=== PATIENT | male | born 1960 | race Caucasian/White ===

== ENCOUNTER 2024-09-20 19:04 | Observation (INO) | payer MEDICARE, SELFPAY ==
[2024-09-20] VITALS (28 sets, daily range): BP systolic 96–157; BP diastolic 68–106; PULSE 76–103; TEMP 36.5–37.1; O2SAT 96–99; BMI 29.0; BMI 28.6
--- NOTE | 2024-09-20 19:08 | ECG_ITS ---
[facility] Test Date: 2024-09-20 Pat Name: ROSALEE PATRICK Department: Room: - Gender: Male Claims Representative: : 1960 Requested By: [id number] Order Number: [id number] Reading MD: CORNELIO BAE M.D. Measurements Intervals [place] Rate: 98 P: 80 OK: 190 QRS: 70 QRSD: 74 T: 70 QT: 326 QTc: 381 Interpretive Statements 1100 Sinus rhythm Normal ECG No previous ECG available for comparison Electronically Signed On 09-20-2024 20:21:49 EDT by CORNELIO BAE M.D.
--- NOTE | 2024-09-20 19:10 | ED.NEUROSD1 ---
HPI - Neuro Symptoms/Deficit General Chief Complaint: Neuro Symptoms/Deficit Stated Complaint: Possible Stroke Time Seen by Provider: 09/20/24 19:06 History of Present Illness HPI Narrative: This 58-year-old male who quit smoking 2 weeks ago presents for evaluation of dizziness, lightheadedness and feeling that her motor skills were not working specifically on the left side of his body. The symptoms started approximately 20 minutes prior to arrival after having dinner with his family. The patient states that his oxygen has been running low. He denies any headache. He does not have any slurred speech. He does not have any confusion. He has no weakness numbness or tingling after coming back from CAT scan. He states his left hand felt numb earlier but that seems to be resolving and his dizziness seems better. He denies any chest pain but has had ongoing shortness of breath since a recent bout of influenza. The patient states that he thinks that his lungs just cannot recover after having influenza. He denies any alcohol intake. He states he has not had a drink in 30 years. He has no abdominal pain or back pain. He denies any nausea vomiting diarrhea. He has not had any diaphoresis or syncope. Additional history was obtained from the patient's daughter. She states that they were having dinner at a local [employer] restaurant and she looked over at him and he was leaning to the left. She has some if he was okay and noticed that he was drooling and at that time he had slurred speech. She had some trouble getting him out of the restaurant but was able to get him into the car but he was fumbling with his hands and could not buckle his seatbelt. Apparently he had an episode of dizziness a week or so ago as well. The patient's daughter is glad to see that when she came back to see him in room 5 that his symptoms appear to have resolved. He was reevaluated and his neuroexam remains normal. He is jovial and making jokes with his daughter. He is awake and alert. He is using his upper and lower extremities normally at this time. Related Data Home Medications ?Medication ?Instructions ?Recorded ?Confirmed No Known Home Medications 09/20/24 09/20/24 Allergies Allergy/AdvReac Type Severity Reaction Status Date / Time No Known Drug Allergies Allergy Verified 09/20/24 19:31 Review of Systems ROS Status of ROS 10 or more systems reviewed and unremarkable except as noted in history and below [facility] Social History (Updated 09/20/24 @ 22:35 by Saranya Robbins RN) Smoking status: Former smoker Little interest or pleasure in doing things: not at all Feeling down, depressed, or hopeless: not at all Exam Narrative Exam Narrative: Vital signs and Nursing Notes reviewed: Patient is afebrile with a normal pulse, normal respiratory rate, blood pressure is mildly elevated at 148/95, he is not hypoxic with pulse ox of 97% on room air General: Awake, alert, oriented, slightly anxious, no respiratory distress HEENT: Normocephalic atraumatic, mucous membranes are moist and pink, eyes are clear, normal conjunctiva, vision is grossly intact, posterior pharynx is normal in appearance. Neck: Supple, no meningeal signs, no anterior or posterior cervical lymphadenopathy Chest: Lungs are clear to auscultation with good air entry, there is no wheezing rhonchi or rales appreciated no accessory muscle use, patient is speaking in complete sentences-no chest wall tenderness to palpation CVS: Regular rate and rhythm S1-S2, no murmurs rubs or gallops, pulses are brisk and equal bilaterally ABD: Soft, nondistended, nontender, no rebound guarding or rigidity, bowel sounds are normal, no pulsatile masses appreciated Extremities: Moving all extremities, no lower extremity tenderness or swelling noted, negative Homans' sign, pulses are brisk and equal bilaterally Skin: Normal in appearance without rash,pallor, petechiae or purpura Neuro: No focal deficits; speech is clear but he has some degree of difficulty finding the words he wants to use, mold filler and drainer strength is intact, there is no facial droop. Patient easily pulls himself to a seated position with no truncal ataxia or weakness, cognition is intact. Negative pronator drift, upper and lower extremity strength and sensation is intact, patient is able to approximate thumb and all fingers. NIH stroke scale is 1-2 Constitutional Vital Signs, click to edit/add: Last Vital Signs Temp 98.7 F 09/20/24 19:19 Pulse 88 09/20/24 22:30 Resp 24 H 09/20/24 22:30 BP 124/77 09/20/24 21:32 Pulse Ox 99 09/20/24 22:00 O2 Del Method Room Air 09/20/24 19:19 Course Vital Signs Vital signs: Vital Signs Pulse Rate 103 H 09/20/24 19:18 Respiratory Rate 20 09/20/24 19:18 Temperature 98.7 F 09/20/24 19:19 Pulse Rate 88 09/20/24 22:30 Respiratory Rate 24 H 09/20/24 22:30 Blood Pressure 124/77 09/20/24 21:32 Pulse Oximetry 99 09/20/24 22:00 Oxygen Delivery Method Room Air 09/20/24 19:19 MDM - Neuro Symptoms/Deficit MDM Narrative Medical decision making narrative: This 64-year-old male who is a former smoker presents for evaluation of acute onset of left-sided weakness with slurred speech and some drooling. The patient's daughter was with him at a local restaurant when the symptoms started. She brought him immediately to the emergency department. Upon arrival his symptoms had started to resolve. He was taken for an immediate CT scan of the brain for stroke. CT scan was negative for acute findings. The patient complains of some dysesthesia in the left arm and feeling that it is cold. He also is having some degree of dysarthria and motor difficulty with the left hand and arm. The patient's daughter states that he was unable to buckle his seatbelt in her car. The symptoms started with him leaning to the left with some drooling and dysarthria. Upon arrival to the hospital he was assisted to a wheelchair by security because he was unable to get out of the car by himself. He was taken immediately to CT scan after coming back to the emergency department his symptoms have started to resolve. He denies any chest pain. He has had some shortness of breath since her recent bout of influenza. While in the emergency department his symptoms were minimal with some degree of difficulty finding the appropriate words and mild ataxia. After CT angio of the head and neck he requested to go to the bathroom and required some degree of assistance due to some mild ataxia. His neuroexam is otherwise been normal with no facial droop, slurred speech in the emergency department or focal neurologic weakness numbness or tingling besides the subjective feeling that his left arm is cold. His MA stroke scale is a 1-2 for mild dysarthria and mild ataxia. He was able to read the stroke scale card without any difficulty. EKG done upon arrival is a sinus rhythm at 98 bpm with a normal axis. An IV was placed and routine labs are ordered. He has a normal white count and hemoglobin. Electrolytes are normal. Troponin is normal. He is negative for COVID-19 and influenza. Delta troponin is normal. Lactic acid is normal at 1.8. CT angio of the brain and neck was reviewed by radiology and is negative for acute findings. 324 mg of aspirin and 300 mg of Plavix were given to the patient and neurology at [facility] was consulted. The patient's nurse noted at 1 point he was holding onto a glass of ice and dropped it not remembering that he had in his hands. Case was discussed with the Telestroke Neurologist, Dr Little. He suggest 324 mg baby aspirin, 300 mg of Plavix which had already been given to him and admission for permissive hypertension, an MRI and echocardiogram. This was discussed with the patient and his daughter. He is agreeable to this plan. The case was discussed with the hospitalist and he is excepted for admission, MedSurg with telemetry monitoring. Lab Data Attestation: I reviewed the patient's lab results. Labs: Lab Results 09/20/24 09/20/24 09/20/24 Range/Units 19:12 19:30 19:34 WBC 8.4 (4.0-11.0) 10^3/uL RBC 4.97 (4.70-6.10) 10^6/uL Hgb 15.5 (14.0-18.0) g/dL Hct 44.7 (42.0-54.0) % MCV 89.9 (80.0-94.0) fL MCH 31.2 (25.9-34.0) pg MCHC 34.7 (29.9-35.2) g/dL RDW 13.1 (11.0-15.0) % Plt Count 293 (150-450) 10^3/uL MPV 9.7 (9.5-13.5) fL Neut % (Auto) 61.1 (43.0-75.0) % Lymph % (Auto) 23.3 (20.5-60.0) % Beauregard % (Auto) 13.4 H (1.7-12.0) % Eos % (Auto) 1.3 (0.9-7.0) % Baso % (Auto) 0.2 (0.2-2.0) % Neut # (Auto) 5.2 (1.4-6.5) 10^3/uL Lymph # (Auto) 2.0 (1.2-3.8) 10^3/uL Bea[place]gard # (Auto) 1.1 H (0.3-0.8) 10^3/uL Eos # (Auto) 0.1 (0.0-0.7) 10^3/uL Baso # (Auto) 0.0 (0.0-0.1) 10^3/uL Abs Immat Gran (auto) 0.06 H (0.00-0.03) 10^3/uL Imm/Tot Granulo (auto) 0.7 H (0.0-0.5) % PT 10.1 (9.0-11.6) sec INR 0.95 Sodium 137 (136-145) mmol/L Potassium 4.0 (3.5-5.1) mmol/L Chloride 101 (98-107) mmol/L Carbon Dioxide 25.4 (21.0-32.0) mmol/L Anion Gap 14.6 BUN 20.0 H (7.0-18.0) mg/dL Creatinine 1.11 (0.70-1.30) mg/dL Est GFR ( Amer) >60 (>=60 mL/min/1.73m^2) Est GFR (Non-Af Amer) >60 (>=60 mL/min/1.73m^2) BUN/Creatinine Ratio 18.0 Glucose 134 H (74-106) mg/dL Lactate 1.8 (0.4-2.0) mmol/L Calcium 8.3 L (8.5-10.1) mg/dL Total Bilirubin 0.6 (0.2-1.0) mg/dL AST 12 L (15-37) U/L ALT 37 (16-63) U/L Alkaline Phosphatase 94 (46-116) U/L Troponin I High Sens 7.5 (4.0-76.1) pg/mL Total Protein 6.6 (6.4-8.2) g/dL Albumin 3.1 L (3.4-5.0) g/dL Globulin 3.5 g/dL Albumin/Globulin Ratio 0.9 Influenza Type A Ag Negative Influenza Type B Ag Negative SARS-CoV-2 Ag (CV2AG) Negative (NEGATIVE) POC Glucose 160 H (74-106) mg/dL 09/20/24 Range/Units 21:26 WBC (4.0-11.0) 10^3/uL RBC (4.70-6.10) 10^6/uL Hgb (14.0-18.0) g/dL Hct (42.0-54.0) % MCV (80.0-94.0) fL MCH (25.9-34.0) pg MCHC (29.9-35.2) g/dL RDW (11.0-15.0) % Plt Count (150-450) 10^3/uL MPV (9.5-13.5) fL Neut % (Auto) (43.0-75.0) % Lymph % (Auto) (20.5-60.0) % Beauregard % (Auto) (1.7-12.0) % Eos % (Auto) (0.9-7.0) % Baso % (Auto) (0.2-2.0) % Neut # (Auto) (1.4-6.5) 10^3/uL Lymph # (Auto) (1.2-3.8) 10^3/uL Beauregard # (Auto) (0.3-0.8) 10^3/uL Eos # (Auto) (0.0-0.7) 10^3/uL Baso # (Auto) (0.0-0.1) 10^3/uL Abs Immat Gran (auto) (0.00-0.03) 10^3/uL Imm/Tot Granulo (auto) (0.0-0.5) % PT (9.0-11.6) sec INR Sodium (136-145) mmol/L Potassium (3.5-5.1) mmol/L Chloride (98-107) mmol/L Carbon Dioxide (21.0-32.0) mmol/L Anion Gap BUN (7.0-18.0) mg/dL Creatinine (0.70-1.30) mg/dL Est GFR ( Amer) (>=60 mL/min/1.73m^2) Est GFR (Non-Af Amer) (>=60 mL/min/1.73m^2) BUN/Creatinine Ratio Glucose (74-106) mg/dL Lactate (0.4-2.0) mmol/L Calcium (8.5-10.1) mg/dL Total Bilirubin (0.2-1.0) mg/dL AST (15-37) U/L ALT (16-63) U/L Alkaline Phosphatase (46-116) U/L Troponin I High Sens 8.0 (4.0-76.1) pg/mL Total Protein (6.4-8.2) g/dL Albumin (3.4-5.0) g/dL Globulin g/dL Albumin/Globulin Ratio Influenza Type A Ag Influenza Type B Ag SARS-CoV-2 Ag (CV2AG) (NEGATIVE) POC Glucose (74-106) mg/dL Imaging Data CT scan - head: Radiologist's impression: Noncontrast CT scan of the brain for stroke is negative for acute findings CT angio of head and neck is negative per radiology ECG Data Attestation: I personally reviewed and interpreted this ECG as follows: (Sinus rhythm at 90 bpm, normal axis, normal intervals, no acute ST segment elevation or T wave inversion) Critical Care Time Critical Care Time Critical Care Time: Yes Total Critical Care Time: 35 Attestation: Due to the patient's presentation with acute strokelike symptoms and the high probability of sudden and clinically significant deterioration in his condition he required the highest level of my preparedness to intervene urgently. I provided critical care time including documentation time medication orders and management, evaluation and reevaluation, vital sign assessment ordering and reviewing of lab tests, ordering and reviewing of x-ray studies, consultation with radiology, consultation with teleneurology and admission orders. Aggregate critical care time is 35 minutes including only time during which I was engaged in work directly related to his care and did not include time spent treating other patients simultaneously. Discharge Plan Discharge Chief Complaint: Neuro Symptoms/Deficit Clinical Impression: Cerebrovascular accident Patient Disposition: Admitted as Observation Time of Disposition Decision: 22:37 Condition: Good
[2024-09-20 19:14] LABS: Glucometer 160 mg/dL (74-106)
[2024-09-20 19:38] LABS: Basophils Percent Auto 0.2 % (0.2-2.0); Eosinophils Absolute Auto 0.1 10^3/uL (0.0-0.7); Eosinophils Percent Auto 1.3 % (0.9-7.0); Hematocrit 44.7 % (42.0-54.0); Hemoglobin 15.5 g/dL (14.0-18.0); Immature Granulocytes Abs Auto 0.06 10^3/uL (0.00-0.03); Immature Granulocytes Pct Auto 0.7 % (0.0-0.5); Lymphocytes Percent Auto 23.3 % (20.5-60.0); Mean Corpuscular HGB Conc 34.7 g/dL (29.9-35.2); Mean Corpuscular Hemoglobin 31.2 pg (25.9-34.0); Mean Corpuscular Volume 89.9 fL (80.0-94.0); Mean Platelet Volume 9.7 fL (9.5-13.5); Monocytes Absolute Auto 1.1 10^3/uL (0.3-0.8); Monocytes Percent Auto 13.4 % (1.7-12.0); Neutrophils Absolute Auto 5.2 10^3/uL (1.4-6.5); Neutrophils Percent Auto 61.1 % (43.0-75.0); Platelet Count 293 10^3/uL (150-450); Red Blood Count 4.97 10^6/uL (4.70-6.10); Red Cell Distribution Width 13.1 % (11.0-15.0); White Blood Count 8.4 10^3/uL (4.0-11.0)
[2024-09-20 19:51] LABS: INR 0.95; Prothrombin Time 10.1 sec (9.0-11.6)
[2024-09-20] MEDS: 0.9 % SODIUM CHLORIDE 1,000 ML 500 ML IV (19:52)
[2024-09-20 19:53] LABS: Anion Gap 14.6
[2024-09-20 19:55] LABS: Alanine Aminotransferase 37 U/L (16-63); Albumin Globulin Ratio 0.9; Albumin Level 3.1 g/dL (3.4-5.0); Alkaline Phosphatase 94 U/L (46-116); Aspartate Amino Transferase 12 U/L (15-37); Bilirubin Total 0.6 mg/dL (0.2-1.0); Calcium 8.3 mg/dL (8.5-10.1); Carbon Dioxide 25.4 mmol/L (21.0-32.0); Chloride 101 mmol/L (98-107); Estimated GFR (African America >60 (>=60 mL/min/1.73m^2); Estimated GFR (Non-African Ame >60 (>=60 mL/min/1.73m^2); Globulin 3.5 g/dL; Glucose 134 mg/dL (74-106); Lactate/Lactic Acid 1.8 mmol/L (0.4-2.0); Sodium 137 mmol/L (136-145); Total Protein 6.6 g/dL (6.4-8.2); Troponin I High Sensitivity 7.5 pg/mL (4.0-76.1)
[2024-09-20 19:55] LABS: Influenza Virus A Antigen Negative; Influenza Virus B Antigen Negative; Internal Control Within Normal Limits; SARS-CoV-2 Ag NEGATIVE (NEGATIVE)
[2024-09-20] MEDS: ASPIRIN 81 MG TAB.CHEW 324 MG PO (22:27)
[2024-09-20] MEDS: CLOPIDOGREL BISULFATE 75 MG TABLET 300 MG PO (22:27)
--- NOTE | 2024-09-20 22:34 | PC.NURSE ---
Dr. Merida speaks with hospitalist.
[2024-09-21] VITALS (15 sets, daily range): BP systolic 127–137; BP diastolic 72–83; PULSE 65–92; TEMP 36.4–36.9; O2SAT 92–94
--- NOTE | 2024-09-21 06:08 | P.HP_ITS ---
HPI H&P: HPI History of Present Illness Chief complaint: CVA Narrative: Patient out for dinner had an episode of difficulty speech, drooling, left-sided weakness, presented to the emergency room and over the course of the emergency room visit. That the symptoms improved quite a bit per family members were present with him at the [employer] restaurant. Workup in ER with CT CTAs was negative, case discussed with Neurology: And recommending which is actually already started Plavix and aspirin with the Plavix bolus I saw patient up on the medical surgical floor, he feels back to his normal self and knows no difficulty with his speech there is no facial drooping, upper extremities symmetrical strength, patient headed to MRI Opioid HPI Opioid Management Most Recent Pain and Opioid Data: Last Pain Assessment 09/21/24 09:28 Last ORT Total Score 13 09/20/24 23:30 09/20/24 Last ORT Risk Category High Risk 09/20/24 23:30 09/20/24 Review of Systems ROS Status of ROS 10 or more systems reviewed and unremark able except as noted in history and below PFSH PFSH Medical History (Updated 09/20/24 @ 23:27 by Aubree Sharif) Influenza A ?J10.1 - Influenza due to other identified influenza virus with other respiratory manifestations (ICD-10) Surgical History (Updated 09/20/24 @ 23:27 by Aubree Sharif) History of carpal tunnel surgery ?Z98.890 - Other specified postprocedural states (ICD-10) Family History (Updated 09/20/24 @ 23:29 by Aubree Sharif) Other Family history of CHF (congestive heart failure) Family history of COPD (chronic obstructive pulmonary disease) Family history of diabetes mellitus Family history of hypertension Family history of myocardial infarction Social History (Updated 09/20/24 @ 23:30 by Aubree Sharif) Within the past year, how often did you have a drink containing alcohol: never Score interpretation: A score less than 4 is consistent with normal alcohol consumption. Smoking status: Former smoker Nicotine containing products detail: quit 2wks ago Non-prescribed substance use: denies use Previous occupational history: off due to illness Highest level of school completed/degree received: high school graduate Are you now , , , , never or living with a partner: In a typical week, how many times do you talk on the telephone with family, friends, or neighbors: 3 or more times per week How often do you get together with friends or relatives: 3 or more times per week Little interest or pleasure in doing things: not at all Feeling down, depressed, or hopeless: not at all Do you think of yourself as: straight/heterosexual Gender Identity: male Meds Home Medications and Allergies Home Medications ?Medication ?Instructions ?Recorded ?Confirmed ?Type No Known Home Medications 09/20/24 09/20/24 History Allergies Allergy/AdvReac Type Severity Reaction Status Date / Time No Known Drug Allergies Allergy Verified 09/20/24 19:31 Exam Narrative Exam Narrative: Vital signs and Nursing Notes reviewed: Patient is afebrile with a normal pulse, normal respiratory rate, blood pressure is mildly elevated at 148/95, he is not hypoxic with pulse ox of 97% on room air General: Awake, alert, oriented, slightly anxious, no respiratory distress HEENT: Normocephalic atraumatic, mucous membranes are moist and pink, eyes are clear, normal conjunctiva, vision is grossly intact, posterior pharynx is normal in appearance. Neck: Supple, no meningeal signs, no anterior or posterior cervical lymphadenopathy Chest: Lungs are clear to auscultation with good air entry, there is no wheezing rhonchi or rales appreciated no accessory muscle use, patient is speaking in complete sentences-no chest wall tenderness to palpation CVS: Regular rate and rhythm S1-S2, no murmurs rubs or gallops, pulses are brisk and equal bilaterally ABD: Soft, nondistended, nontender, no rebound guarding or rigidity, bowel sounds are normal, no pulsatile masses appreciated Extremities: Moving all extremities, no lower extremity tenderness or swelling noted, negative Homans' sign, pulses are brisk and equal bilaterally Skin: Normal in appearance without rash,pallor, petechiae or purpura Neuro: No focal deficits; speech is clear but he has some degree of difficulty finding the words he wants to use, rn transition strength is intact, there is no facial droop. Patient easily pulls himself to a seated position with no truncal ataxia or weakness, cognition is intact. Negative pronator drift, upper and lower extremity strength and sensation is intact, patient is able to approximate thumb and all fingers. NIH stroke scale is 1-2 Constitutional Vital Signs, click to edit/add: Last Vital Signs Temp 98.4 F 09/21/24 04:00 Pulse 67 09/21/24 05:51 Resp 18 09/21/24 04:00 BP 131/73 09/21/24 04:00 Pulse Ox 92 L 09/21/24 04:57 O2 Del Method Room Air 09/21/24 04:57 Documenting provider has reviewed patient's vital signs: yes Common normals: no apparent distress, average body habitus, oriented x3, no limitations, healthy appearing, alert and well nourished Chest Common normals: inspection of chest normal Respiratory Common normals: normal respiratory effort and no retractions Cardio Common normals: regular rate and regular rhythm GI Common normals: Normal to inspection, nondistended, normoactive bowel sounds present and soft to palpation Extremity Common normals: normal to inspection and no clubbing, cyanosis or edema Neuro Common normals: oriented x3, CN's II-XII intact bilaterally, moves all extremities and no focal motor deficits Results Labs Labs: Short CBC 09/20/24 Range/Units 19:30 WBC 8.4 (4.0-11.0) 10^3/uL Hgb 15.5 (14.0-18.0) g/dL Hct 44.7 (42.0-54.0) % Plt Count 293 (150-450) 10^3/uL BMP 09/20/24 19:30 Sodium 137 Potassium 4.0 Chloride 101 Carbon Dioxide 25.4 BUN 20.0 H Creatinine 1.11 Glucose 134 H Calcium 8.3 L Liver Function 09/20/24 Range/Units 19:30 Total Bilirubin 0.6 (0.2-1.0) mg/dL AST 12 L (15-37) U/L ALT 37 (16-63) U/L Alkaline Phosphatase 94 (46-116) U/L Albumin 3.1 L (3.4-5.0) g/dL Assessment and Plan Assessment and Plan (1) Cerebrovascular accident: Plan Admission findings: Sinus tachycardia, mild respiratory distress, mild elevation of blood pressure with left-sided weakness and difficulty with speech prior to admission, those have resolved, patient mated for CVA workup Left facial droop and dysarthria with left weakness and hand -CTA negative, MRI scan consistent with subacute right posterior parietal infarct-patient was received loading dose of Plavix and aspirin, will maintain Plavix and aspirin dosing, consult to telestroke, echocardiogram pending Mild elevation blood pressure on admission-just monitor Mild elevation in BUN on admission resolved this morning mild elevation in BUN- resolved Hyperglycemia on admission-resolved Admission status: Patient initially placed in observation status for workup and evaluation for stroke-stable currently with no neurological changes currently, awaiting input from telestroke team and his echocardiogram, medically necessary treatment likely to only span 1 midnight, observation status, if medically necessary treatment will span 2 midnights will change patient to inpatient status
--- NOTE | 2024-09-21 06:10 | CA_ITS ---
Patient Name: ROSALEE PATRICK MR#: [id number] : 1960 Exam Date: 09/21/2024 Ordering Doctor: DR Bhavesh Norris . CORRECTION Corrected on: 09/21/2024; ECHOCARDIOGRAM REPORT PROCEDURE: CA ECHO DOPPLER COMPLETE INDICATIONS: Dyspnea, TIA COMPARISON: None. DESCRIPTION: COMPLETE ECHOCARDIOGRAM Real-time transthoracic echocardiography with 2D, M-mode, spectral and color flow Doppler performed. QUALITY: Technical quality was good. LEFT VENTRICLE: Normal chamber size. Moderate concentric left ventricular hypertrophy. LV EF: Normal left ventricular systolic function without wall motion abnormalities, ejection fraction 65% DIASTOLIC: Normal diastolic function. ATRIAL SEPTUM: Visually appears intact. LEFT ATRIUM: Normal chamber size. RIGHT ATRIUM: Normal chamber size. RIGHT VENTRICLE: Normal chamber size. TRICUSPID VALVE: Normal mobility and thickness. No stenosis with trivial regurgitation. MITRAL VALVE: Normal mobility and thickness. No evidence of mitral valve stenosis. There is no mitral annular calcification. No mitral regurgitation. AORTIC VALVE: Normal trileaflet appearance. Normal leaflet mobility. No evidence of aortic valve stenosis. Multifocal calcifications.No aortic regurgitation. AORTIC ROOT: Normal diameter and appearance. PULMONIC VALVE: Not well visualized. No stenosis. No regurgitation. PERICARDIUM: No evidence of pericardial effusion. IVC: Collapes with inspirations. IVC is normal in size. PLEURA: CONCLUSION: Moderate concentric left ventricle hypertrophy Normal left ventricle size, and systolic function without wall motion abnormalities, ejection fraction 65% Normal left ventricular diastolic function Normal right ventricle size and systolic function Normal right-sided pressures Trace tricuspid regurgitation Adult Echocardiography Procedure Report Left Ventricle LVEDD (3.7 - 5.6 cm): 3.66 cm LVESD (2.2 - 4.0 cm): 2.59 cm LVIVS thickness (0.6 - 1.2 cm): 1.71 cm LVPW thickness (0.5 - 1.0 cm): 1.26 cm e': 0.10 m/s E - e': 6.17 LVOT Max Gradient: 4.69 mm[Hg] LVOT Area (cm2): 1.08 m/s Peak Velocity (LVOT): 1.08 m/s Mean Velocity (LVOT): 0.71 m/s LVOT Diameter 2.53 cm Left Atrium LA Volume Index (2D A2C): 25.49 ml/m2 Left Atrium Systolic Dimension: 3.31 cm Mitral Valve MV E to A Ratio: 0.85 Mitral Valve A-Wave Peak Velocity: 0.75 m/s Mitral Valve E-Wave Peak Velocity: 0.64 m/s Right Ventricle Aorta AO Root Diam: 3.61 cm Aortic Valve AoV Area (Peak Philip): 4.19 cm2, 4.19 cm2 AoV Area (VTI): 4.29 cm2, 4.29 cm2 Peak Velocity(Antegrade Flow): 1.29 m/s Peak Gradient(Antegrade Flow): 6.69 mm[Hg] Mean Velocity(Antegrade Flow): 0.90 m/s Mean Gradient(Antegrade Flow): 3.67 mm[Hg] Velocity Time Integral: 26.02 cm Tricuspid Valve Pulmonic Valve Mean Gradient: 3.95 mm[Hg] Mean Velocity: 0.91 m/s Peak Velocity: 1.37 m/s, 1.21 m/s Peak Gradient: 5.83 mm[Hg], 7.49 mm[Hg] Right Atrium Dictated by: Margie Stone MD on 09/21/2024 at 17:45 Approved by: Margie Stone MD on 09/21/2024 at 17:50 Dictated by: Margie Stone MD on 09/21/2024 at 18:35 Approved by: Margie Stone MD on 09/21/2024 at 18:35
[2024-09-21 06:14] LABS: Basophils Percent Auto 0.3 % (0.2-2.0); Eosinophils Absolute Auto 0.1 10^3/uL (0.0-0.7); Eosinophils Percent Auto 1.6 % (0.9-7.0); Hematocrit 39.9 % (42.0-54.0); Hemoglobin 13.5 g/dL (14.0-18.0); Immature Granulocytes Abs Auto 0.04 10^3/uL (0.00-0.03); Immature Granulocytes Pct Auto 0.6 % (0.0-0.5); Lymphocytes Absolute Auto 1.5 10^3/uL (1.2-3.8); Lymphocytes Percent Auto 22.5 % (20.5-60.0); Mean Corpuscular HGB Conc 33.8 g/dL (29.9-35.2); Mean Corpuscular Hemoglobin 30.4 pg (25.9-34.0); Mean Corpuscular Volume 89.9 fL (80.0-94.0); Mean Platelet Volume 9.7 fL (9.5-13.5); Monocytes Percent Auto 14.9 % (1.7-12.0); Neutrophils Absolute Auto 4.1 10^3/uL (1.4-6.5); Neutrophils Percent Auto 60.1 % (43.0-75.0); Platelet Count 255 10^3/uL (150-450); Red Blood Count 4.44 10^6/uL (4.70-6.10); Red Cell Distribution Width 13.2 % (11.0-15.0); White Blood Count 6.8 10^3/uL (4.0-11.0)
[2024-09-21 06:23] LABS: Anion Gap 13.7; BUN Creatinine Ratio 15.2; Carbon Dioxide 24.4 mmol/L (21.0-32.0); Chloride 106 mmol/L (98-107); Estimated GFR (African America >60 (>=60 mL/min/1.73m^2); Estimated GFR (Non-African Ame >60 (>=60 mL/min/1.73m^2); Glucose 105 mg/dL (74-106); Magnesium 1.8 mg/dL (1.8-2.4); Potassium 4.1 mmol/L (3.5-5.1); Sodium 140 mmol/L (136-145)
--- NOTE | 2024-09-21 08:13 | CM.NOTE ---
Rounds made with Dr. Norris, pt verbalizes improvement in speech and hand grasp. Pt being taken per wheelchair to MRI at this time. Possible discharge this afternoon after testing completed. PT and OT will also evaluate pt today for discharge planning. Pt will remain OBS status.
[2024-09-21] MEDS: CLOPIDOGREL BISULFATE 75 MG TABLET PO (08:20)
[2024-09-21] MEDS: ASPIRIN 325 MG TABLET PO (08:20)
--- NOTE | 2024-09-21 12:53 | P.DS_ITS ---
DS: Providers Provider Date of admission: 09/20/24 23:01 Primary care physician: Non-Staff Physician, Consults: 09/20/24 22:30 Consult to Telestroke Routine Reason for consultation: left sided weakness, dysarthria Has provider been notified: Yes 09/21/24 06:09 Occupational Therapy Eval and Treat Routine Reason for consultation: Only if needed for Rehab Has provider been notified: No Physical Therapy Eval and Treat Routine Reason for consultation: Eval and Treat Has provider been notified: No DS: Diagnosis Discharge Diagnosis (1) Cerebrovascular accident: Plan Admission findings: Sinus tachycardia, mild respiratory distress, mild elevation of blood pressure with left-sided weakness and difficulty with speech prior to admission, those have resolved, patient mated for CVA workup Left facial droop and dysarthria with left weakness and hand -CTA negative, MRI scan consistent with subacute right posterior parietal infarct-patient was received loading dose of Plavix and aspirin, will maintain Plavix and aspirin dosing, consult to telestroke, echocardiogram pending Mild elevation blood pressure on admission-just monitor Mild elevation in BUN on admission resolved this morning mild elevation in BUN- resolved Hyperglycemia on admission-resolved Admission status: Patient initially placed in observation status for workup and evaluation for stroke-stable currently with no neurological changes currently, awaiting input from telestroke team and his echocardiogram, medically necessary treatment likely to only span 1 midnight, observation status, if medically necessary treatment will span 2 midnights will change patient to inpatient status ? DS: Summary Time Spent with Patient Time attestation: Total time spent providing and/or coordinating discharge services: Quality: Stroke Onset of Symptoms Date: 09/20/24 Onset of Symptoms Time: 19:00 Exam Constitutional Vital Signs, click to edit/add: Last Vital Signs Temp 98.0 F 09/21/24 08:26 Pulse 77 09/21/24 11:52 Resp 16 09/21/24 08:26 BP 137/83 09/21/24 08:26 Pulse Ox 94 L 09/21/24 10:12 O2 Del Method Room Air 09/21/24 10:12 DS: Data Data Completed and Pending Labs on day of discharge: Labs from last 24 hours 09/21/24 09/20/24 09/20/24 05:57 21:26 19:34 WBC 6.8 RBC 4.44 L Hgb 13.5 L Hct 39.9 L MCV 89.9 MCH 30.4 MCHC 33.8 RDW 13.2 Plt Count 255 MPV 9.7 Neut % (Auto) 60.1 Lymph % (Auto) 22.5 [place] % (Auto) 14.9 H Eos % (Auto) 1.6 Baso % (Auto) 0.3 Neut # (Auto) 4.1 Lymph # (Auto) 1.5 [place] # (Auto) 1.0 H Eos # (Auto) 0.1 Baso # (Auto) 0.0 Abs Immat Gran (auto) 0.04 H Imm/Tot Granulo (auto) 0.6 H PT INR Sodium 140 Potassium 4.1 Chloride 106 Carbon Dioxide 24.4 Anion Gap 13.7 BUN 15.0 Creatinine 0.99 Est GFR ( Amer) >60 Est GFR (Non-Af Amer) >60 BUN/Creatinine Ratio 15.2 Glucose 105 Lactate Calcium 8.0 L Magnesium 1.8 Total Bilirubin AST ALT Alkaline Phosphatase Troponin I High Sens 8.0 Total Protein Albumin Globulin Albumin/Globulin Ratio Influenza Type A Ag Negative Influenza Type B Ag Negative SARS-CoV-2 Ag (CV2AG) Negative POC Glucose 09/20/24 09/20/24 19:30 19:12 WBC 8.4 RBC 4.97 Hgb 15.5 Hct 44.7 MCV 89.9 MCH 31.2 MCHC 34.7 RDW 13.1 Plt Count 293 MPV 9.7 Neut % (Auto) 61.1 Lymph % (Auto) 23.3 [place] % (Auto) 13.4 H Eos % (Auto) 1.3 Baso % (Auto) 0.2 Neut # (Auto) 5.2 Lymph # (Auto) 2.0 [place] # (Auto) 1.1 H Eos # (Auto) 0.1 Baso # (Auto) 0.0 Abs Immat Gran (auto) 0.06 H Imm/Tot Granulo (auto) 0.7 H PT 10.1 INR 0.95 Sodium 137 Potassium 4.0 Chloride 101 Carbon Dioxide 25.4 Anion Gap 14.6 BUN 20.0 H Creatinine 1.11 Est GFR ( Amer) >60 Est GFR (Non-Af Amer) >60 BUN/Creatinine Ratio 18.0 Glucose 134 H Lactate 1.8 Calcium 8.3 L Magnesium Total Bilirubin 0.6 AST 12 L ALT 37 Alkaline Phosphatase 94 Troponin I High Sens 7.5 Total Protein 6.6 Albumin 3.1 L Globulin 3.5 Albumin/Globulin Ratio 0.9 Influenza Type A Ag Influenza Type B Ag SARS-CoV-2 Ag (CV2AG) POC Glucose 160 H Discharge Plan Discharge Disposition: Home, Self-Care Condition: Good Discharge Medications: New aspirin 325 mg Tablet 325 mg PO QD Qty: 30 [id number] No Action No Known Home Medications Print Language: [place]itanian Forms: Portal Instructions
== END 2024-09-21 19:00 | disposition home or self-care (01) ==
LOC: ER 22:37 → MS 23:25
PROVIDERS: Registered Nurse; Admitting Provider Family Medicine; Emergency Provider Emergency Medicine; Visit Provider Family Medicine
DX: I63.9 Cerebral infarction, unspecified (principal); R06.02 Shortness of breath; Z87.891 Personal history of nicotine dependence; I10 Essential (primary) hypertension; R79.89 Other specified abnormal findings of blood chemistry; R73.9 Hyperglycemia, unspecified; R00.0 Tachycardia, unspecified; R06.03 Acute respiratory distress
CPT/HCPCS: 36415; 70030; 70450; 70496; 70498; 70551; 71045; 80048; 80053; 81001; 83605; 83735; 84484; 85025; 85610; 87804; 87811; 93005; 93270; 93306; 94761; 96360; 96361; 97161; 97165; 97530; 99285; G0328; G0378; Q9967